=== PATIENT | male | born 1950 | race Caucasian/White ===

== ENCOUNTER 2021-04-17 18:19 | Emergency (ER) | payer OTHER ==
[~2021-04-17] VITALS: Ht 175.3 cm; Wt 80.7 kg
[2021-04-17 21:29] VITALS: BP 149/87
== END 2021-04-17 23:27 | disposition home or self-care (01) ==
LOC: ER 18:19
DX: S29.012A Strain of muscle and tendon of back wall of thorax, initial encounter (principal); S39.012A Strain of muscle, fascia and tendon of lower back, initial encounter; S09.8XXA Other specified injuries of head, initial encounter; I10 Essential (primary) hypertension; W18.09XA Striking against other object with subsequent fall, initial encounter; Y93.89 Activity, other specified; Y92.090 Kitchen in other non-institutional residence as the place of occurrence of the external cause; Y99.8 Other external cause status
CPT/HCPCS: 70450; 72128; 72131